=== PATIENT | male | born 1955 | race Caucasian/White ===

== ENCOUNTER 2017-05-23 10:37 | Day surgery (SDC) | payer SELFPAY ==
[~2017-05-23 10:37] MED LIST: COLCHICINE 0.6 MG CAP/TAB PO SCH
--- NOTE | 2017-05-23 10:43 | EDPHY ---
H & P Time Seen by Provider: 05/23/17 10:37 HPI/ROS: CHIEF COMPLAINT: Chest discomfort HISTORY OF PRESENT ILLNESS: 1 hour prior to arrival while doing sit-ups patient developed substernal chest discomfort. Was arrival as a cardiac alert by EMS. Describe central chest discomfort which does not radiate, associated with some nausea. Received IV fentanyl and Zofran in the field. Not associated with shortness of breath, symptoms moderate initially, very mild on arrival. REVIEW OF SYSTEMS: Eye: no change in vision ENT: no sore throat Cardiac: HPI Pulmonary: no cough or SOB Abdomen: no vomiting, diarrhea, abdominal pain Musculoskeletal: no back pain or leg swelling Skin: no rash Neuro: no headache Constitutional: no fever : no urinary symptoms A comprehensive 10 point review of systems is otherwise negative aside from elements mentioned in the history of present illness. PAST MEDICAL HISTORY: Hypertension Family history: Positive for premature coronary disease and father Social history: General Appearance: Alert and conversant, cooperative. Eyes: No scleral icterus. ENT, Mouth: Normal mucous membranes. Respiratory: Normal respiratory effort, breath sounds equal, lungs are clear to auscultation. Cardiovascular: Regular rate and rhythm. Gastrointestinal: Abdomen is soft and non tender. Neurological: Alert and oriented x3. Normally conversant. Face symmetric, normal movement and sensation in all extremities. Skin: Warm and dry, no rashes. Musculoskeletal: No peripheral edema and no joint swelling. No calf tenderness. Psychiatric: Not agitated. Emergency Department course/MDM: Dr. Stewart in the emergency department on patient arrival. 1047: Dr. Stewart at bedside with echocardiogram, he will take the patient emergently to cardiac catheterization lab. Constitutional: Initial Vital Signs Temperature (C) 36.6 C 05/23/17 10:43 Heart Rate 87 05/23/17 10:43 Respiratory Rate 19 05/23/17 10:43 Blood Pressure 135/68 H 05/23/17 10:43 O2 Sat (%) 93 05/23/17 10:43 O2 Delivery Mode Room Air Allergies/Adverse Reactions: No Known Allergies Allergy (Unverified 05/23/17 10:47) Home Medications: Medication Instructions Recorded Hydrochlorothiazide 05/23/17 Medical Decision Making - Diagnostics EKG Interpretation: 12-lead EKG interpreted by me; official reading is in trace master. My interpretation is sinus rhythm with slight inferior and lateral ST elevation. No reciprocal changes. Differential Diagnosis: Differential diagnosis considered for chest pain including but not limited to myocardial ischemia, aortic dissection, pericarditis, pulmonary embolus, chest wall pain, pleural inflammation and pulmonary infectious causes. Critical Care Time: Critical care time spent by me, Dr. Fernandez, exclusively with the care of this patient was 15 minutes, exclusive of PA or RECREATIONAL AIDE time and exclusive of separate procedures. The organ system at risk was cardiovascular and I ordered echocardiogram, cardiology consultation, EKG; to stabilize the patient and prevent worsening of the patient's condition. - Data Points Laboratory Results: Laboratory Results 05/23/17 10:40 05/23/17 10:40 05/23/17 05/23/17 05/23/17 10:40 10:40 10:40 WBC 12.66 10^3/uL H 10^3/uL (3.80-9.50) RBC 5.76 10^6/uL 10^6/uL (4.40-6.38) Hgb 16.0 g/dL g/dL (13.7-17.5) Hct 47.9 % % (40.0-51.0) MCV 83.2 fL fL (81.5-99.8) MCH 27.8 pg L pg (27.9-34.1) MCHC 33.4 g/dL g/dL (32.4-36.7) RDW 14.2 % % (11.5-15.2) Plt Count 237 10^3/uL 10^3/uL (150-400) MPV 11.1 fL fL (8.7-11.7) Neut % (Auto) 66.2 % % (39.3-74.2) Lymph % (Auto) 25.0 % % (15.0-45.0) [place] % (Auto) 6.3 % % (4.5-13.0) Eos % (Auto) 1.6 % % (0.6-7.6) Baso % (Auto) 0.6 % % (0.3-1.7) Nucleat RBC Rel Count 0.0 % % (0.0-0.2) Absolute Neuts (auto) 8.38 10^3/uL H 10^3/uL (1.70-6.50) Absolute Lymphs (auto) 3.17 10^3/uL H 10^3/uL (1.00-3.00) Absolute Monos (auto) 0.80 10^3/uL 10^3/uL (0.30-0.80) Absolute Eos (auto) 0.20 10^3/uL 10^3/uL (0.03-0.40) Absolute Basos (auto) 0.07 10^3/uL 10^3/uL (0.02-0.10) Absolute Nucleated RBC 0.00 10^3/uL 10^3/uL (0-0.01) Immature Gran % 0.3 % % (0.0-1.1) Immature Gran # 0.04 10^3/uL 10^3/uL (0.00-0.10) D-Dimer < 0.27 ug/mLFEU ug/mLFEU (0.00-0.50) Sodium 137 mEq/L mEq/L (134-144) Potassium 3.6 mEq/L mEq/L (3.5-5.2) Chloride 99 mEq/L mEq/L (97-110) Carbon Dioxide 24 mEq/l mEq/l (22-31) Anion Gap 14 mEq/L mEq/L (8-16) BUN 21 mg/dL mg/dL (7-23) Creatinine 1.0 mg/dL mg/dL (0.7-1.3) Estimated GFR > 60 Glucose 137 mg/dL H mg/dL (70-100) Calcium 9.7 mg/dL mg/dL (8.5-10.4) Troponin I < 0.012 ng/mL ng/mL (0.000-0.034) Departure - Departure Disposition: To OP Cath/Surgery Clinical Impression: Chest pain Qualifiers: Chest pain type: unspecified Qualified Code(s): R07.9 - Chest pain, unspecified Condition: Good
[2017-05-23 10:47] VITALS: BP 135/68; PULSE 87; RESP 19; TEMP 97.9; O2SAT 93
--- NOTE | 2017-05-23 10:51 | CPEKG ---
Heart Rate: 88 RR Interval: 682 P-R Interval: 188 QRSD Interval: 92 QT Interval: 356 QTC Interval: 431 P [place]: 67 QRS [place]: 44 T Wave [place]: 13 EKG Severity - BORDERLINE ECG - EKG Impression: SINUS RHYTHM EKG Impression: VENTRICULAR PREMATURE COMPLEX EKG Impression: BORDERLINE INFERIOR Q WAVES Electronically Signed By: Jesus Manuel Fernandez 23-May-2017 12:56:52
[2017-05-23 10:53] LABS: % IMMATURE GRANULYOCYTES 0.3 % (0.0-1.1); ABSOLUTE IMMATURE GRANULOCYTES 0.04 10^3/uL (0.00-0.10); ADD DIFF? NO; ADD MORPH? NO; ADD SCAN? NO; ATYPICAL LYMPHOCYTE FLAG 0 (0-99); FRAGMENT RBC FLAG 0 (0-99); HEMATOCRIT 47.9 % (40.0-51.0); LEFT SHIFT FLG 0 (0-99); LIPEMIA HEMOLYSIS FLAG 80 (0-99); MEAN CELL HEMOGLOBIN 27.8 pg (27.9-34.1); MEAN CELL HEMOGLOBIN CONCENTR. 33.4 g/dL (32.4-36.7); MEAN CELL VOLUME 83.2 fL (81.5-99.8); MEAN PLATELET VOLUME 11.1 fL (8.7-11.7); PLATELET CLUMPS FLAG 0 (0-99); PLATELET COUNT 237 10^3/uL (150-400); RED BLOOD CELL COUNT 5.76 10^6/uL (4.40-6.38); RED CELL DISTRIBUTION WIDTH 14.2 % (11.5-15.2)
[2017-05-23 11:07] LABS: ANION GAP 14 mEq/L (8-16); CALCIUM 9.7 mg/dL (8.5-10.4); CARBON DIOXIDE 24 mEq/l (22-31); CHLORIDE 99 mEq/L (97-110); GLOMERULAR FILTRATION RATE > 60; GLUCOSE 137 mg/dL (70-100); POTASSIUM 3.6 mEq/L (3.5-5.2); SODIUM 137 mEq/L (134-144)
[2017-05-23] MEDS ORDERED: ATROPINE SULFATE 1 MG/10 ML SYR ONE (11:12)
[2017-05-23] MEDS ORDERED: EPINEPHrine 1 MG/10 ML SYR IVP ONE (11:12)
[2017-05-23 11:19] LABS: TROPONIN I < 0.012 ng/mL (0.000-0.034)
[2017-05-23] MEDS ORDERED: LIDOCAINE 1% 300 MG/30 ML SDV ONE (11:26)
[2017-05-23] MEDS ORDERED: IOPAMIDOL (ISOVUE-370) 150 ML BTL IV ONE (11:27)
[2017-05-23] MEDS ORDERED: MIDAZOLAM 2 MG/2 ML VIAL ONE (11:27)
[2017-05-23] MEDS ORDERED: fentaNYL 100 MCG/2 ML INJ ONE (11:27)
--- NOTE | 2017-05-23 13:08 | PDCARCONS ---
Cardiology Consult Reason for Consult: Chest discomfort Chief Complaint: chest discomfort with associated weakness and fatigue Requesting Physician: ER History of Present Illness: Patient is a 61 y/o male with history of HTN, but no HLP, CAD, or DM, who presented to [facility] ER via EMS after developing chest discomfort after doing some sit ups. Patient was in his usual state of health - no cardiovascular complaints have been noted at all - when, during exercise this morning, he noted sharp, substernal chest pains. Symptoms continue to be noted, and the patient opted to "step outside", to get some fresh air. This did little for the patient, and he called his . EMS was called and nitro, SL, was dosed with relief of symptoms, but continued fatigue and weakness was noted. No radiation of the discomfort to the shoulder, neck, or jaw. No PND or orthopnea. Mild nausea was noted, and zofran was given the in field. According to reports, the patient was also given a rather significant dose of fentanyl in the field. ECG from the EMS (there were three) with what appeared to be ST elevation to V1-V3 with flattening of the ST segment to the inferior/ inferolateral leads. In the ER, the patient was without any chest pains. Repeat ECG (12 lead) with continued concerns about mild ST elevation to V1-V3. Bedside echocardiogram with subtle wall motion abnormality to the inferior basilar region. Patient spoke of family history (father with DE at the age of about 30 and CABG late 30' s/early 40's). 12 point review of systems was otherwise unremarkable. History Information - Allergies/Home Medication List Allergies/Adverse Reactions: No Known Allergies Allergy (Unverified 05/23/17 10:47) Home Medications: Hydrochlorothiazide 05/23/17 [Last Taken Unknown] I have personally reviewed and updated: family history, medical history, social history, surgical history Past Medical History: - Past Medical History hypertension Additional medical history: kidney stones - Surgical History Reports: no pertinent surgical hx - Family History Positive for: CAD, father with history of CAD younger than 55, male first degree with history of premature CAD, hypertension - Social History Smoking Status: Never smoked Alcohol Use: None Drug Use: None Cardiac History - Cardiac History Cardiac Risk Factors: hypertension (>140/90), family history of premature CAD, male Timing/Duration: Hours Severity: moderate Severity Scale: 7 Location: substernal, central Activities at Onset: activity Modifying Factors: improves with: nitroglycerin, oxygen, rest Associated Symptoms: nausea/vomiting, weakness SHARAD Risk Evaluation age greater or equal to 65: no greater or equal to 3 CAD risk factors: no known CAD(stenosis greater or eqaul to 50%): no ASA use in past 7 days: no severe angina(greater or equal to 2 episodes in 24hrs): no EKG ST changes greater or equal to 0.5mm: yes positive cardiac marker: no Total Score: 2 SHARAD Score: 8.3% risk Physical Exam Physical Exam: Temp Pulse Resp BP Pulse Ox 36.6 C 87 19 135/68 H 93 05/23/17 10:43 05/23/17 10:43 05/23/17 10:43 05/23/17 10:43 05/23/17 10:43 Constitutional: no apparent distress, appears nourished, not in pain Eyes: PERRL Ears, Nose, Mouth, Throat: moist mucous membranes Cardiovascular: regular rate and rhythym, pulses symmetric bilaterally, No JVD, No edema Peripheral Pulses: 2+: dorsalis-pedis (R), dorsalis-pedis (L) Respiratory: no respiratory distress, no rales or rhonchi, clear to auscultation Gastrointestinal: normoactive bowel sounds Genitourinary: no bladder fullness Skin: warm, normal color Musculoskeletal: full muscle strength, no muscle tenderness, normal joint ROM Neurologic: AAOx3, sensation intact bilaterally, CN II-XII Intact Psychiatric: interacting appropriately, not anxious, not encephalopathic Lab and Imaging 05/23/17 10:40 05/23/17 10:40 WBC 12.66 10^3/uL (3.80-9.50) H 05/23/17 10:40 RBC 5.76 10^6/uL (4.40-6.38) 05/23/17 10:40 Hgb 16.0 g/dL (13.7-17.5) 05/23/17 10:40 Hct 47.9 % (40.0-51.0) 05/23/17 10:40 MCV 83.2 fL (81.5-99.8) 05/23/17 10:40 MCH 27.8 pg (27.9-34.1) L 05/23/17 10:40 MCHC 33.4 g/dL (32.4-36.7) 05/23/17 10:40 RDW 14.2 % (11.5-15.2) 05/23/17 10:40 Plt Count 237 10^3/uL (150-400) 05/23/17 10:40 MPV 11.1 fL (8.7-11.7) 05/23/17 10:40 Neut % (Auto) 66.2 % (39.3-74.2) 05/23/17 10:40 Lymph % (Auto) 25.0 % (15.0-45.0) 05/23/17 10:40 [place] % (Auto) 6.3 % (4.5-13.0) 05/23/17 10:40 Eos % (Auto) 1.6 % (0.6-7.6) 05/23/17 10:40 Baso % (Auto) 0.6 % (0.3-1.7) 05/23/17 10:40 Nucleat RBC Rel Count 0.0 % (0.0-0.2) 05/23/17 10:40 Absolute Neuts (auto) 8.38 10^3/uL (1.70-6.50) H 05/23/17 10:40 Absolute Lymphs (auto) 3.17 10^3/uL (1.00-3.00) H 05/23/17 10:40 Absolute Monos (auto) 0.80 10^3/uL (0.30-0.80) 05/23/17 10:40 Absolute Eos (auto) 0.20 10^3/uL (0.03-0.40) 05/23/17 10:40 Absolute Basos (auto) 0.07 10^3/uL (0.02-0.10) 05/23/17 10:40 Absolute Nucleated RBC 0.00 10^3/uL (0-0.01) 05/23/17 10:40 Immature Gran % 0.3 % (0.0-1.1) 05/23/17 10:40 Immature Gran # 0.04 10^3/uL (0.00-0.10) 05/23/17 10:40 D-Dimer < 0.27 ug/mLFEU (0.00-0.50) 05/23/17 10:40 Sodium 137 mEq/L (134-144) 05/23/17 10:40 Potassium 3.6 mEq/L (3.5-5.2) 05/23/17 10:40 Chloride 99 mEq/L (97-110) 05/23/17 10:40 Carbon Dioxide 24 mEq/l (22-31) 05/23/17 10:40 Anion Gap 14 mEq/L (8-16) 05/23/17 10:40 BUN 21 mg/dL (7-23) 05/23/17 10:40 Creatinine 1.0 mg/dL (0.7-1.3) 05/23/17 10:40 Estimated GFR > 60 05/23/17 10:40 Glucose 137 mg/dL (70-100) H 05/23/17 10:40 Calcium 9.7 mg/dL (8.5-10.4) 05/23/17 10:40 Troponin I < 0.012 ng/mL (0.000-0.034) 05/23/17 10:40 Visualized and Interpreted EKG results: Yes EKG Interpretation: Positive for: normal sinsus rhythm, NS ST wave abnormalities Telemetry: sinus rhythm with non specific ST/T wave changes noted Echocardiogram: normal LVEF with grossly normal wall motion. Grossly normal valve morphology. Questionable hypokinesis to the inferior/inferobasilar region in few views A/P Assessment: Given the symptoms noted, the acuity of the symptoms, and the strong, premature family history for CAD, with non specific ST/T wave changes in a patient with history of HTN and a relatively large dose of fentanyl in the field (which could easily suppress the patient's ability to appreciate "chest pain"), we opted to pursue left heart catheterization. Risks and benefits of the procedure were discussed with te patient and in the ER today. Plan: Left heart catheterization to be performed.
--- NOTE | 2017-05-23 13:23 | PDDXCAT ---
Diagnostic Cath Note - . Date: 05/23/17 [place] Supervisor: Terry Indication: CCC Class III and IV angina on medical treatment - Procedure Access: right groin Procedure: left heart catheterization, coronary angiography, left ventriculogram - Materials Left Heart Cath size: 6F Left Heart Cath materials: standard multipack (JL4, JR4, pigtail) - Findings-Left Heart Catheterization LM: Large caliber vessel with trifurcation into the LAD, ramus, and LCX. No luminal irregularities were noted to the LM. LAD: Large diameter vessel with an early diagonal take off. In the mid portion of the vessel, bifurcation into second diagonal branch takes half of the diameter with it (almost appears that the LAD divides into two, equal magnitude vessels. There are minor luminal irregularities (no more than 10%) in the mid portion of the LAD. Moderate tortuosity was also noted in mid and distal LAD. LCX: Medium to large diameter vessel with one principal OM. No luminal irregularities were noted. Tortuosity is once again noted to the mid and distal LAD. RCA: Dominant vessel with supply to the PDA territory. No luminal irregularities were noted. Medium to large caliber vessel. Ramus: Medium caliber vessel without luminal irregularities noted. EDP: 18 mm Hg LVEF: 65% Wall motion: normal wall motion Complications: none Estimated blood loss: <50ml Closure method: Angioseal Assessment: Patient is a 61 y/o male with history of HTN and strong, premature CAD to the family, with complaints of chest pains with exercise. Non specific ST/T wave changes were noted on ECG. Normal coronary arteries with normal LVEF and wall motion noted. Plan: Would continue with antihypertensive therapy as at present. Will discharge the patient to home later today, but ensure that the large dose of Fentanyl has worn off prior to discharge. Will have patient seen in the outpatient setting in about one week to reassess groin site. Patient's was given report of the angiogram. Intervention: none
--- NOTE | 2017-05-23 14:52 | CPEKG ---
Heart Rate: 81 RR Interval: 741 P-R Interval: 192 QRSD Interval: 84 QT Interval: 352 QTC Interval: 409 P [place]: 62 QRS [place]: 41 T Wave [place]: 18 EKG Severity - ABNORMAL ECG - EKG Impression: SINUS RHYTHM EKG Impression: DIFFUSE ST ELEVATION CONSISTENT WITH PERICARDITIS Electronically Signed By: Rupert Stewart 24-May-2017 08:24:48
[2017-05-23] MEDS ORDERED: IBUPROFEN 600 MG TAB PO ONE (16:00)
[2017-05-23] MEDS ORDERED: COLCHICINE 0.6 MG CAP/TAB PO ONE (16:00)
== END 2017-05-23 17:51 | disposition home or self-care (01) ==
LOC: UNDOADMOB 10:59 → FCATH 10:59
PROVIDERS: ATTEND Internal Medicine Cardiovascular Disease
PROC: B2111ZZ Fluoroscopy of Multiple Coronary Arteries using Low Osmolar Contrast (ICD-10-PCS; principal; 2017-05-23)
PROC: 4A023N7 Measurement of Cardiac Sampling and Pressure, Left Heart, Percutaneous Approach (ICD-10-PCS; principal; 2017-05-23)
PROC: B2151ZZ Fluoroscopy of Left Heart using Low Osmolar Contrast (ICD-10-PCS; principal; 2017-05-23)
DX: I20.9 Angina pectoris, unspecified (principal); Z82.49 Family history of ischemic heart disease and other diseases of the circulatory system; I10 Essential (primary) hypertension
CPT/HCPCS: C1760; J0461; J1644; J2250; J3010; Q9967

== ENCOUNTER 2017-11-16 05:54 | Emergency (ER) | payer OTHER ==
[2017-11-16] MEDS ORDERED: fentaNYL 100 MCG/2 ML INJ IVP ONE (06:12)
[2017-11-16] MEDS ORDERED: NS 1,000 ML IV ONE (06:12)
[2017-11-16] MEDS ORDERED: ONDANSETRON 4 MG/2 ML VIAL IVP ONE (06:12)
--- NOTE | 2017-11-16 06:13 | EDPHY ---
H & P Stated Complaint: Poss kidney stones, left flank pain Time Seen by Provider: 11/16/17 06:00 HPI/ROS: Chief Complaint: Left flank pain HPI: 62-year-old male with a history of kidney stones in the past presenting with 2 days of left flank pain similar to prior kidney stones. Patient was seen by his primary care physician yesterday and had a urinalysis which was negative for blood. He was told he likely had a kidney stone. They started him on Flomax yesterday. His pain got significantly worse this morning is now a 8 or 9/10. He has had kidney stones in the past and has required lithotripsy. No fevers or chills. Did have some nausea and vomited once this morning. No recent injuries or falls. ROS: 10 point Review of Systems is negative except as noted in the HPI. PMH: Hypertension Social History: No smoking Family History: non-contributory Physical Exam: Gen: Awake, Alert, No Distress HEENT: Nose: no rhinorrhea Eyes: PERRLA, EOMI Mouth: Moist mucosa Neck: Supple, no JVD Chest: nontender, lungs clear to auscultation Heart: S1, S2 normal, no murmur Abd: Soft, non-tender, no guarding Back: no CVA tenderness, no midline tenderness Ext: no edema, non-tender Skin: no rash Neuro: CN II-XII intact, Sensation grossly intact, Strength 5/5 in bilateral upper and lower extremities - Personal History Current Tetanus Diphtheria and Acellular Pertussis (TDAP): No - Medical/Surgical History Hx Asthma: No Hx Chronic Respiratory Disease: No Hx Diabetes: No Hx Cardiac Disease: No Hx Renal Disease: Yes Hx Cirrhosis: No Hx Alcoholism: No Hx HIV/AIDS: No Hx Splenectomy or Spleen Trauma: No Other PMH: Htn.Kidney stones. - Social History Smoking Status: Never smoked Constitutional: Initial Vital Signs Temperature (C) 36.7 C 11/16/17 05:57 Heart Rate 76 11/16/17 05:57 Respiratory Rate 20 11/16/17 05:57 Blood Pressure 127/75 H 11/16/17 05:57 O2 Sat (%) 93 11/16/17 05:57 O2 Delivery Mode Room Air O2 (L/minute) 2 Allergies/Adverse Reactions: No Known Allergies Allergy (Verified 11/16/17 05:57) Home Medications: Medication Instructions Recorded Hydrochlorothiazide 05/23/17 Hydrocodone/Acetaminophen 1 - 2 each PO Q4-6PRN PRN #10 11/16/17 [Hydrocodon-Acetaminophen 5-325] tablet Medical Decision Making - Diagnostics Imaging Results: CT scan of the abdomen and pelvis shows no evidence of stone or hydronephrosis. There is constipation. Otherwise no acute findings. Study interpreted by Dr. Hernandez. ED Course/Re-evaluation: Patient is improved after IV fentanyl in fluids. CT scan results noted. I am still awaiting a urinalysis result. Urinalysis is unremarkable. The patient is now telling me that the day before he started having the pain he went rollover skiing and possibly twisted his back at that time. Patient woke up the next morning with the pain is been persistent since that time. Given this new historical feature I think it is much more likely that it is acute muscle strain. He is completely neurologically intact. There are no red flags for acute neurologic process. His pain is down to a 3/10. I have just given some Toradol as an anti- inflammatory. He has been given discharge instructions and will follow up with primary care physician. - Data Points Laboratory Results: Laboratory Results 11/16/17 06:13 11/16/17 06:13 11/16/17 11/16/17 11/16/17 07:04 06:13 06:13 WBC RBC Hgb Hct MCV MCH MCHC RDW Plt Count MPV Neut % (Auto) Lymph % (Auto) [place] % (Auto) Eos % (Auto) Baso % (Auto) Nucleat RBC Rel Count Absolute Neuts (auto) Absolute Lymphs (auto) Absolute Monos (auto) Absolute Eos (auto) Absolute Basos (auto) Absolute Nucleated RBC Immature Gran % Immature Gran # Sodium 136 mEq/L mEq/L (135-145) Potassium 3.8 mEq/L mEq/L (3.3-5.0) Chloride 97 mEq/L mEq/L (97-110) Carbon Dioxide 25 mEq/l mEq/l (22-31) Anion Gap 14 mEq/L mEq/L (8-16) BUN 22 mg/dL mg/dL (7-23) Creatinine 0.9 mg/dL mg/dL (0.7-1.3) Estimated GFR > 60 Glucose 120 mg/dL H mg/dL (70-100) Calcium 9.3 mg/dL mg/dL (8.5-10.4) Urine Color SERGE REJ Urine Appearance CLEAR REJ Urine pH 6.0 REJ (5.0-7.5) Ur Specific [place] 1.013 REJ (1.002-1.030) Urine Protein NEGATIVE REJ (NEGATIVE) Urine Ketones NEGATIVE REJ (NEGATIVE) Urine Blood NEGATIVE REJ (NEGATIVE) Urine Nitrate POSITIVE H REJ (NEGATIVE) Urine Bilirubin NEGATIVE REJ (NEGATIVE) Urine Urobilinogen 4.0 EU H EU REJ (0.2-1.0) Ur Leukocyte Esterase NEGATIVE REJ (NEGATIVE) Urine RBC 1-3 /hpf /hpf REJ (0-3) Urine WBC 1-3 /hpf /hpf REJ (0-3) Ur Epithelial Cells TRACE /lpf /lpf REJ (NONE-1+) Ur Renal Epithelial Cell REJ Urine Crystals REJ Ammonium Urate Crystals REJ Calcium Carbonate Cryst REJ Calcium Phosphate Cryst REJ Calcium Oxalate Crystal REJ Leucine Crystals REJ Cystine Crystals REJ Uric Acid Crystals REJ Triple Phos Crystals REJ Sulfonamide Crystals REJ Cholesterol Crystals REJ Tyrosine Crystals REJ Bilirubin Crystals REJ Amorphous Sediment REJ Urine Bacteria 1+ /hpf H /hpf REJ (NONE SEEN) Epithelial Casts REJ Fatty Casts REJ Hyaline Casts REJ Granular Casts REJ Waxy Casts REJ Broad Casts REJ RBC Casts REJ WBC Casts REJ Urine Mucus TRACE /lpf /lpf REJ (NONE-1+) Urine Trichomonas REJ Urine Yeast REJ Urine Sperm REJ Ur Oval Fat Bodies REJ Ur Free Fat Droplets REJ Urine Glucose NEGATIVE REJ (NEGATIVE) Urine Comment REJ 11/16/17 06:13 WBC 10.99 10^3/uL H 10^3/uL (3.80-9.50) RBC 5.60 10^6/uL 10^6/uL (4.40-6.38) Hgb 15.5 g/dL g/dL (13.7-17.5) Hct 45.8 % % (40.0-51.0) MCV 81.8 fL fL (81.5-99.8) MCH 27.7 pg L pg (27.9-34.1) MCHC 33.8 g/dL g/dL (32.4-36.7) RDW 13.1 % % (11.5-15.2) Plt Count 216 10^3/uL 10^3/uL (150-400) MPV 11.5 fL fL (8.7-11.7) Neut % (Auto) 75.9 % H % (39.3-74.2) Lymph % (Auto) 15.2 % % (15.0-45.0) [place] % (Auto) 5.7 % % (4.5-13.0) Eos % (Auto) 2.2 % % (0.6-7.6) Baso % (Auto) 0.6 % % (0.3-1.7) Nucleat RBC Rel Count 0.0 % % (0.0-0.2) Absolute Neuts (auto) 8.34 10^3/uL H 10^3/uL (1.70-6.50) Absolute Lymphs (auto) 1.67 10^3/uL 10^3/uL (1.00-3.00) Absolute Monos (auto) 0.63 10^3/uL 10^3/uL (0.30-0.80) Absolute Eos (auto) 0.24 10^3/uL 10^3/uL (0.03-0.40) Absolute Basos (auto) 0.07 10^3/uL 10^3/uL (0.02-0.10) Absolute Nucleated RBC 0.00 10^3/uL 10^3/uL (0-0.01) Immature Gran % 0.4 % % (0.0-1.1) Immature Gran # 0.04 10^3/uL 10^3/uL (0.00-0.10) Sodium Potassium Chloride Carbon Dioxide Anion Gap BUN Creatinine Estimated GFR Glucose Calcium Urine Color Urine Appearance Urine pH Ur Specific [place] Urine Protein Urine Ketones Urine Blood Urine Nitrate Urine Bilirubin Urine Urobilinogen Ur Leukocyte Esterase Urine RBC Urine WBC Ur Epithelial Cells Ur Renal Epithelial Cell Urine Crystals Ammonium Urate Crystals Calcium Carbonate Cryst Calcium Phosphate Cryst Calcium Oxalate Crystal Leucine Crystals Cystine Crystals Uric Acid Crystals Triple Phos Crystals Sulfonamide Crystals Cholesterol Crystals Tyrosine Crystals Bilirubin Crystals Amorphous Sediment Urine Bacteria Epithelial Casts Fatty Casts Hyaline Casts Granular Casts Waxy Casts Broad Casts RBC Casts WBC Casts Urine Mucus Urine Trichomonas Urine Yeast Urine Sperm Ur Oval Fat Bodies Ur Free Fat Droplets Urine Glucose Urine Comment Medications Given: Discontinued Medications Fentanyl (Sublimaze) 100 mcg IVP EDNOW ONE Stop: 11/16/17 06:13 Last Admin: 11/16/17 06:42 Dose: 100 mcg Sodium Chloride (Ns) 1,000 mls @ 0 mls/hr IV ONCE ONE; Wide Open PRN Reason: Protocol Stop: 11/16/17 06:13 Last Admin: 11/16/17 06:18 Dose: 1,000 mls Ketorolac Tromethamine (Toradol) 15 mg IVP EDNOW ONE Stop: 11/16/17 07:20 Last Admin: 11/16/17 07:29 Dose: 15 mg Ondansetron HCl (Zofran) 4 mg IVP EDNOW ONE Stop: 11/16/17 06:13 Last Admin: 11/16/17 06:42 Dose: 4 mg Departure - Departure Disposition: Home, Routine, Self-Care Clinical Impression: Flank pain Condition: Good Instructions: Flank Pain (ED) Additional Instructions: May take ibuprofen, 600 mg 3 times a day as needed for pain. For breakthrough pain you may take acetaminophen with hydrocodone 1-2 tablets every 4-6 hours. Start a daily constipation medications such as MiraLax per package instructions to treat your constipation. Follow up with primary care physician in 3-4 days for further evaluation. Return to the emergency department for increasing pain, nausea, vomiting, fevers , chills, or any other concerns. Referrals: Patricia Chambers MD [Primary Care Provider] - As per Instructions Prescriptions: Hydrocodone/Acetaminophen [Hydrocodon-Acetaminophen 5-325] 1 - 2 each PO Q4- 6PRN PRN #10 tablet PRN Reason: Pain, Severe
[2017-11-16 06:32] LABS: PLATELET COUNT 216 10^3/uL (150-400)
[2017-11-16] MEDS ORDERED: KETOROLAC 15 MG/1 ML SDV IVP ONE (07:19)
[2017-11-16 07:54] VITALS: BP 120/63
== END 2017-11-16 08:03 | disposition home or self-care (01) ==
DX: R10.9 Unspecified abdominal pain (principal); I10 Essential (primary) hypertension; E86.9 Volume depletion, unspecified
CPT/HCPCS: 96374; J1885; J2405; J3010